=== PATIENT | female | born 1975 | race Two or more races ===

== ENCOUNTER 2018-03-16 04:25 | Emergency (ER) | payer OTHER ==
[~2018-03-16] VITALS: Ht 162.6 cm; Wt 59.0 kg
[~2018-03-16 04:25] MED LIST: BENADRYL25 MG PO; DICY20TA PO; PEPCID40 MG PO; TOBREX5 ML OP
== END 2018-03-16 14:13 | disposition home or self-care (01) ==
LOC: ER 04:25
DX: R10.13 Epigastric pain (principal)

== ENCOUNTER 2018-03-22 07:27 | Day surgery (SDC) | payer OTHER | END 2018-03-22 15:40 | disposition home or self-care (01) | LOC: CIR.AMB 07:27 | DX: K80.10 Calculus of gallbladder with chronic cholecystitis without obstruction (principal) ==

== ENCOUNTER 2018-06-06 09:57 | Outpatient (CLI) | payer OTHER | END 2018-06-06 10:06 | disposition home or self-care (01) | LOC: MAMO-SONO 09:57 | DX: N60.11 Diffuse cystic mastopathy of right breast (principal); N60.12 Diffuse cystic mastopathy of left breast; Z12.31 Encounter for screening mammogram for malignant neoplasm of breast ==

== ENCOUNTER 2018-11-06 07:32 | Outpatient (CLI) | payer OTHER | END 2018-11-06 07:35 | disposition home or self-care (01) | LOC: SONOGRAMA 07:32 | DX: R10.84 Generalized abdominal pain (principal) ==

== ENCOUNTER 2020-03-18 09:59 | Outpatient (CLI) | payer OTHER | END 2020-03-18 10:08 | disposition home or self-care (01) | LOC: MAMO-SONO 09:59 | PROVIDERS: ATTEND Specialist | DX: N60.02 Solitary cyst of left breast (principal); N60.11 Diffuse cystic mastopathy of right breast; N60.12 Diffuse cystic mastopathy of left breast; R92.2 Inconclusive mammogram ==

== ENCOUNTER 2021-11-29 13:50 | Outpatient (CLI) | payer OTHER | END 2021-11-29 13:54 | disposition home or self-care (01) | LOC: RAD 13:50 | PROVIDERS: ATTEND Chiropractor | DX: M25.561 Pain in right knee (principal) ==

== ENCOUNTER 2022-01-20 14:39 | Outpatient (CLI) | payer OTHER | END 2022-01-20 14:54 | disposition home or self-care (01) | LOC: MAMO-SONO 14:39 | PROVIDERS: ATTEND Obstetrics & Gynecology | DX: N60.11 Diffuse cystic mastopathy of right breast (principal); N60.12 Diffuse cystic mastopathy of left breast ==